=== PATIENT | male | born 1960 | race Caucasian/White ===

== ENCOUNTER 2021-07-20 08:37 | Emergency (ER) | payer OTHER, SELFPAY ==
[2021-07-20 08:38] VITALS: BP 153/101; PULSE 74; RESP 16; TEMP 36.5; O2SAT 95; BMI 26.8
--- NOTE | 2021-07-20 08:54 | RAD_ITS ---
STUDY: X-RAY CHEST REASON FOR EXAM: Male, 61 years old. Chest pain and hand numbness of the lip. TECHNIQUE: Single AP portable view of the chest. COMPARISON: None. FINDINGS: EKG electrodes are seen. There is hyperinflation of the lungs consistent with chronic obstructive lung disease (COPD). There is no demonstrated pleural abnormality. Normal size heart. Normal mediastinum and felicia. Normal visualized pulmonary arteries. Normal visualized aortic arch and descending thoracic aorta. There are diffuse degenerative changes of the visualized thoracic spine. Normal visualized ribs, clavicles, and shoulders. There is no demonstrated abnormality of the visualized soft tissue structures of the upper abdomen. RAD/Chest 1 View (Portable) IMPRESSION: Hyperinflation. The lungs are clear. Electronically Signed: Joe Bolivar MD at 9:49 EST , Service support ,
--- NOTE | 2021-07-20 08:54 | EKG12_ITS ---
Test Reason : CP Blood Pressure : / mmHG Vent. Rate : 066 BPM Atrial Rate : 066 BPM P-R Int : 164 ms QRS Dur : 078 ms QT Int : 396 ms P-R-T Axes : 014 014 039 degrees QTc Int : 415 ms Normal sinus rhythm Normal ECG No previous ECGs available Confirmed by GREER MCGOVERN, JESSICA ([id number]), editor at large ROSIE HEBERT ([id number]) on 07/25/2021 7:31:04 AM Referred By: ROYCE Confirmed By:JESSICA BUTTERFIELD MD
--- NOTE | 2021-07-20 08:55 | ED.VIS.CHEST ---
HPI History of Present Illness Chief Complaint: Chest Pain Informant: patient Onset/Context/Timing Onset: Today Activity at onset: sudden Timing: Continuous Quality: Positive for Pressure Location: Right Chest and Left Chest Current Severity: Mild Worsened By: Nothing Relieved By: Nothing Associated Symptoms: Positive for Cough; Negative for Nausea, Vomiting, Diaphoresis, Dyspnea, Fever, Lightheadedness, Acid Reflux and Palpitations Narrative Narrative: Patient presents with chest pain that began today. Patient states it began rather suddenly. Patient states he was walking while he was at work. Patient states that he felt a pressure in his chest. Patient states his lips also feel numb. Patient states he also was having some pain in his left arm. Patient states his pain is diffuse across his chest. Patient states nothing makes it better nothing makes it worse. Patient admits to recent cough but denies any shortness of breath or fevers. Patient denies any nausea or vomiting. Patient denies any lightheadedness or palpitations. [facility] Medical History Anxiety Tachycardia Home Medications NK 07/20/21 [History Last Taken Unknown] Allergy/AdvReac Type Severity Reaction Status Date / Time No Known Allergies Allergy Verified 07/20/21 08:42 Social History Smoking Status: Current every day smoker tobacco type: cigarettes ROS ROS ED Constitutional Constitutional ED: Denies chills or fever(s) Eyes Eyes: Denies blurry vision or change in vision ENT ENT ED: Reports sore throat; Denies rhinorrhea Cardiovascular Cardiovascular: Reports chest pain; Denies palpitations Respiratory/Chest Respiratory/Chest: Reports cough; Denies dyspnea Gastrointestinal Gastrointestinal: Reports nausea; Denies abdominal pain or vomiting Genitourinary Genitourinary ED: Denies dysuria or hematuria Musculoskeletal Musculoskeletal: Denies back pain or neck pain Integumentary Denies abscess or rash Neurologic Neurologic: Denies headache(s) or weakness Allergic/Immunologic Allergic/Immunologic ED: Denies mouth swelling or urticaria EXAM Physical Exam Const Vital Signs: 07/20/21 08:38 07/20/21 09:03 07/20/21 10:51 Temperature 97.7 F L Temperature Source Oral Pulse Rate 74 75 Respiratory Rate 16 20 H Respiratory Effort Normal Non-Labored Respiratory Pattern Normal Blood Pressure 153/101 H 136/95 H Blood Pressure Mean 118 108 Pulse Ox 95 100 Oxygen Delivery Method Room Air Room Air Room Air 07/20/21 11:12 07/20/21 12:37 Temperature Temperature Source Pulse Rate 63 97 Respiratory Rate 15 17 Respiratory Effort Respiratory Pattern Blood Pressure 163/106 H 143/93 H Blood Pressure Mean 125 109 Pulse Ox 97 96 Oxygen Delivery Method Room Air Room Air Positive well nourished and well developed General Appearance ED: well developed HEENT normocephalic and atraumatic Eyes PERRL and EOMs intact bilaterally Neck supple and no JVD Chest Wall palpation of chest normal Resp normal respiratory effort and clear to auscultation bilaterally Effort and Inspection: Negative for respiratory distress Cardio regular rate, regular rhythm and no murmurs GI normal to inspection, nondistended, normoactive bowel sounds, soft to palpation, non-tender and non-distended Extremity normal to inspection General Extremety ED: Negative for edema or tenderness General Extremity: Negative for edema Neuro oriented x3, CN's II-XII intact bilaterally and no sensory deficits noted Sensorium / Orientation: awake and alert Motor Exam: strength 5/5 throughout Psych mental status grossly normal Heart Score History: Slightly/Non-Suspicious ECG: Normal Age: >45 - <65 years Risk Factors: 1 or 2 Risk Factors Troponin: </= Normal Limit Score: 2 MDM MDM MDM Narrative Medical decision making narrative: Patient was given aspirin here. EKG was obtained. On my interpretation, it showed a normal sinus rhythm with a rate of 66. SD interval, QRS interval, and QTc intervals were all normal. [place] was normal. There are no acute ST or T wave changes. Portable 1 view chest x-ray was obtained. On my interpretation, lung mann are clear. There is normal cardiac silhouette. Bony thorax is normal. There is no acute process noted. Radiologist also interpreted the x-ray and agrees. CBC was within normal limits. D-dimer was normal. Basic metabolic profile was within normal limits. Initial high-sensitivity troponin was less than 3. 2-hour repeat high-sensitivity troponin was 3. Patient was advised of his findings. Patient has a HEART score of 2. Patient was advised that this is low risk for acute cardiac event. Patient was given referral for a primary care physician for follow-up care in 5 to 7 days. Patient understood and was agreeable with the plan. All questions were answered. Lab Data Attestation: I reviewed the patient's lab results. Labs: Laboratory Results - last 24 hr 07/20/21 07/20/21 07/20/21 08:41 08:41 08:41 WBC 4.0 L RBC 4.04 L Hgb 13.8 Hct 39.1 L MCV 96.8 H MCH 34.2 H MCHC 35.3 RDW Std Deviation 48.5 H RDW Coeff of Magdalena 13.5 Plt Count 258 MPV 9.7 Immature Gran % (Auto) 0.300 Neut % (Auto) 51.3 Lymph % (Auto) 38.2 [place] % (Auto) 8.4 Eos % (Auto) 1.3 Baso % (Auto) 0.5 Absolute Neuts (auto) 2.0 Absolute Lymphs (auto) 1.51 Nucleated RBC % 0 D-Dimer Quant (PE/DVT) 0.29 Sodium 141 Potassium 3.7 Chloride 109 H Carbon Dioxide 23.0 Anion Gap 9 BUN 9 Creatinine 1.09 Estim Creat Clear Calc 68.85 Est GFR (MDRD) Af Amer 88 Est GFR (MDRD) Non-Af 73 BUN/Creatinine Ratio 8.3 L Glucose 102 Calcium 9.0 Troponin I High Sens < 3 L 07/20/21 10:45 WBC RBC Hgb Hct MCV MCH MCHC RDW Std Deviation RDW Coeff of [place]dal[place] Plt Count MPV Immature Gran % (Auto) Neut % (Auto) Lymph % (Auto) [place] % (Auto) Eos % (Auto) Baso % (Auto) Absolute Neuts (auto) Absolute Lymphs (auto) Nucleated RBC % D-Dimer Quant (PE/DVT) Sodium Potassium Chloride Carbon Dioxide Anion Gap BUN Creatinine Estim Creat Clear Calc Est GFR (MDRD) Af Amer Est GFR (MDRD) Non-Af BUN/Creatinine Ratio Glucose Calcium Troponin I High Sens 3 Radiography Chest X-Ray - ED: 1 View, Read by ED Physician, Read by Radiologist and Normal Diagnostic Testing: Clinical Impression(s) from Imaging Studies Chest X-Ray 07/20/21 08:54 IMPRESSION: Hyperinflation. The lungs are clear. Electronically Signed: Joe Bolivar MD at 9:49 EST , Service support , EKG Initial EKG: Attestation: I personally reviewed and interpreted this EKG as follows: Interpretation: Sinus Rhythm (66) and No Acute Injury Pattern Prior EKG tracings: not available for review Discharge Plan Triage Chief Complaint: Chest Pain ED Provider: Sebastian Mcdonough Dx/Rx/DC Orders Clinical Impression: Chest pain Instructions: ED Chest Pain, Uncertain Cause Prescriptions: No Action NK RF: 0 Primary Care Provider: Care Physician,No Primary Referrals: Dalton Lau MD [STAFF PHYSICIAN] - 5-7 Days Care Physician,No Primary [Primary Care Provider] - Disposition Disposition: Home, Self Care
[2021-07-20] MEDS: Aspirin 81 MG TAB.CHEW 324 MG PO (09:00)
[2021-07-20 09:16] LABS: Absolute Lymphocyte Count 1.51 X10^3/uL (0.83-4.51); Basophil# 0.02 X10^3/uL; Basophil% 0.5 % (0-1); Eosinophil# 0.05 X10^3/uL; Eosinophils% 1.3 % (0-5); Hematocrit 39.1 % (40-54); Hemoglobin 13.8 g/dL (13.0-16.5); Lymphocyte # 1.51 X10^3/ul (0.83-4.51); Lymphocyte % 38.2 % (19-41); Mean Corp Hgb Conc 35.3 g/dL (32-36); Mean Corpuscular Hgb 34.2 pg (27.0-32.0); Mean Corpuscular Volume 96.8 fL (80-94); Mean Platelet Vol. 9.7 fl (6.2-12.0); Monocyte# 0.33 X10^3/uL; Monocyte% 8.4 % (0-10); NRBC Flagged by Analyzer 0 % (0-5); Neutrophil # 2.03 X10^3/uL (2.7-7.7); Neutrophil % 51.3 % (47-70); Platelet Count 258 K/mm3 (150-450); RBC Distribution Width CV 13.5 % (11.6-14.6); RBC Distribution Width SD 48.5 fl (35.1-43.9); Red Blood Count 4.04 M/mm3 (4.6-6.2)
[2021-07-20 09:18] LABS: D-Dimer Quantitative (DVT/PE) 0.29 FEU/ug/m (0.27-0.49)
[2021-07-20 09:25] LABS: Anion Gap 9 (5-15); BUN 9 mg/dL (7-18); BUN/Creat Ratio 8.3 RATIO (10-20); Chloride 109 mmol/L (98-107); Creatinine, Serum 1.09 mg/dL (0.70-1.30); EST Glomerular Filtration Rate 73 mL/min (>60); Est Glom Filt Rate - Afr Amer 88 mL/min (>60); Estimated Creatinine Clearance 68.85 ml/min; Glucose 102 mg/dL (74-106); Potassium 3.7 mmol/L (3.5-5.1); Sodium Level 141 mmol/L (136-145); Troponin-I HS < 3 pg/mL (3.0-78.0)
[2021-07-20 10:51] VITALS: BP 136/95; PULSE 75; RESP 20; O2SAT 100
[2021-07-20 11:12] VITALS: BP 163/106; PULSE 63; RESP 15; O2SAT 97
[2021-07-20 11:12] LABS: Troponin-I HS 3 pg/mL (3.0-78.0)
[2021-07-20 12:37] VITALS: BP 143/93; PULSE 97; RESP 17; O2SAT 96
[2021-07-20 13:04] VITALS: PULSE 74; RESP 16; O2SAT 98
== END 2021-07-20 13:05 | disposition home or self-care (01) ==
PROVIDERS: Emergency Provider Emergency Medicine
DX: R07.9 Chest pain, unspecified (principal); F17.210 Nicotine dependence, cigarettes, uncomplicated
CPT/HCPCS: 71045; 80048; 84484; 85025; 85379; 87426; 93005; 99285; A4216

== ENCOUNTER 2022-06-07 12:05 | Emergency (ER) | payer OTHER, SELFPAY ==
[2022-06-07 12:05] VITALS: BP 177/69; PULSE 62; RESP 16; TEMP 36.2; O2SAT 100; BMI 27.3
--- NOTE | 2022-06-07 12:27 | ED.RN ---
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
--- NOTE | 2022-06-07 12:58 | CT_ITS ---
STUDY: CT BRAIN WITHOUT CONTRAST REASON FOR EXAM: Male, 62 years old. headache FALL AT WORK X1 DAY AGO--HIT RIGHT SIDE OF HEAD HEAD T NECK PAIN RADIATION DOSAGE (If Supplied By Facility): CTDIvol = ( 47.06 ) mGy, DLP = ( 855.03 ) mGycm TECHNIQUE: Transaxial CT imaging of the brain was performed without administration of intravenous contrast material. Individualized dose optimization techniques were used for this CT. COMPARISON: No relevant priors. FINDINGS: Normal soft tissue structures. Normal calvarium. No visualized skull fracture or hemorrhagic contusions of the brain parenchyma or subdural hematoma. Normal size ventricles and extra-axial spaces for the patient''s age. Normal white matter tracts of the cerebral hemispheres. Normal basal ganglia and thalami. Normal brainstem. Normal cerebellum. There is no intracranial hemorrhage. There are no findings of an acute ischemic infarction. Normal visualized paranasal sinuses. CT/Brain/Head without Contrast IMPRESSION: Normal unenhanced CT scan of the brain. Electronically Signed: Benjamin Rankin MD at 13:28 EDT ,
--- NOTE | 2022-06-07 12:58 | CT_ITS ---
STUDY: CT CERVICAL SPINE WITHOUT CONTRAST REASON FOR EXAM: Male, 62 years old. FALL AT WORK X1 DAY AGO--HIT RIGHT SIDE OF HEAD HEAD T NECK PAIN RADIATION DOSAGE (If Supplied By Facility): CTDIvol = ( 18.89 ) mGy, DLP = ( 347.47 ) mGycm TECHNIQUE: High resolution transaxial imaging was performed without contrast material. Sagittal and coronal images were reconstructed. Individualized dose optimization techniques were used for this CT. COMPARISON: None FINDINGS: Normal craniovertebral junction. Normal anterior atlantoaxial articulation. Normal odontoid process. There is reversal of the normal cervical lordosis. No visualized acute fracture or compression deformity. Moderate to severe disc space narrowing with a diffuse disc osteophyte complex at C4-C5, C5-C6, C6-C7 resulting in mild to moderate central canal stenosis and compression anterior aspect of the cord. Moderate to severe bilateral foraminal stenosis at C4-C5, C5-C6, C6-C7 with nerve root compression. Multilevel uncovertebral and facet degenerative changes at all visualized levels. Moderate disc space narrowing at C7-T1. Mild central canal stenosis at C7-T1. Normal visualized soft tissue structures. CT/Spine Cervical without Contras IMPRESSION: Multilevel degenerative changes, as described above. Electronically Signed: Benjamin Rankin MD at 13:31 EDT ,
--- NOTE | 2022-06-07 12:58 | EX.ED.GENINJ ---
HPI History of Present Illness Chief Complaint: Head Injury Narrative Narrative: 62-year-old male presenting with headache. He states he was at work yesterday and walking along a railing and lost his footing under the rail and fell hitting his head head and specifically his right cheek on the concrete. Denies LOC. He states he was able to finish his shift up until 6:30 PM. He does not have lightheadedness, dizziness, nausea, vomiting, light or sound sensitivity. He does admit to a little bit of neck pain and he had a small bruise to the right side of his chest which he states does not hurt very bad. He does not have any shortness of breath. He is not anticoagulated on any blood thinners. He states he woke up this morning and shook his head and started to have a very severe headache. He took ibuprofen and is now down to a 6 or 7. He went to work today and was referred to be evaluated as Worker's Comp. Patient states he has no significant medical history. [facility] Medical History Anxiety Tachycardia Home Medications naproxen 500 mg tablet (Naprosyn) 500 mg PO BID PRN pain #20 tabs 06/07/22 [Rx Last Taken Unknown] Allergy/AdvReac Type Severity Reaction Status Date / Time No Known Allergies Allergy Verified 06/07/22 12:14 Social History Smoking Status: Former smoker ROS [facility] ED Constitutional Constitutional ED: Denies chills or fever(s) Eyes Eyes: Denies blurry vision or change in vision ENT ENT ED: Denies rhinorrhea or sore throat Cardiovascular Cardiovascular: Denies chest pain or palpitations Respiratory/Chest Respiratory/Chest: Denies cough or dyspnea Gastrointestinal Gastrointestinal: Denies abdominal pain, nausea or vomiting Genitourinary Genitourinary ED: Denies dysuria or hematuria Musculoskeletal Musculoskeletal: Reports neck pain; Denies arthralgias Integumentary Denies abscess or Abrasions Neurologic Neurologic: Reports headache(s); Denies paresthesias or weakness Psychiatric Psychiatric: Denies anxiety or depression EXAM Physical Exam Const Vital Signs: 06/07/22 12:05 06/07/22 12:47 Temperature 97.1 F L Temperature Source Temporal Pulse Rate 62 Respiratory Rate 16 Respiratory Effort Normal Respiratory Depth Normal Respiratory Pattern Normal Blood Pressure 177/69 H Blood Pressure Mean 105 Pulse Ox 100 Oxygen Delivery Method Room Air Room Air Positive well nourished General Appearance ED: REGIS WALTERS Narrative: Patient symmetric. No bruising on the face. No extraocular muscle entrapment. TMs normal. atraumatic Eyes PERRL and EOMs intact bilaterally Chest Wall Chest Narrative: Small area of ecchymosis over the upper part of the right pectoralis. No crepitance or deformity. Equal symmetric breath sounds and chest wall rise. Resp normal respiratory effort and clear to auscultation bilaterally Auscultation: Negative for rales, rhonchi or wheezes Cardio Negative for regular rhythm GI normal to inspection, nondistended, normoactive bowel sounds Back/Spine Lumbar Spine / Lower Back: straight leg raise negative bilaterally Extremity normal to inspection Neuro oriented x3 and CN's II-XII intact bilaterally Sensorium / Orientation: alert Motor Exam: strength 5/5 throughout Psych Mood & Affect: Negative for depressed or anxious Skin no rashes or lesions noted, no wounds and No no jaundice MDM MDM MDM Narrative Medical decision making narrative: 62-year-old male presenting with headache after a fall yesterday. He is concerned for concussion but does not have any red flag signs or symptoms of concussion. Not dizzy, lightheaded, nauseous, no light or sound sensitivity. He states his headache is a 6 after taking ibuprofen. No focal neurologic deficits or lateralizing signs or symptoms. [facility] and had Worker's Comp. paperwork filled out there. CT of the brain and cervical spine are both negative for acute findings. Patient counseled he probably has a mild concussion based on his symptoms and headache. He is given concussion precautions and follow-up with the [facility]. Return precautions for here were given. Impression: 1. Mechanical fall 2. Closed head injury 3. Concussion?mild Lab Data Attestation: I reviewed the patient's lab results. Radiography Diagnostic Testing: Clinical Impression(s) from Imaging Studies Brain CT 06/07/22 12:58 IMPRESSION: Normal unenhanced CT scan of the brain. Electronically Signed: Benjamin Rankin MD at 13:28 EDT , Cervical Spine CT 06/07/22 12:58 IMPRESSION: Multilevel degenerative changes, as described above. Electronically Signed: Benjamin Rankin MD at 13:31 EDT Reading Location ID and State: [facility] / [place] , Service support , Discharge Plan Triage Chief Complaint: Head Injury ED Provider: Delgado Ring Dx/Rx/DC Orders Instructions: ED Concussion Prescriptions: New naproxen [Naprosyn] 500 mg tablet 500 mg PO BID PRN (Reason: pain) Qty: 20 0RF Primary Care Provider: Care Physician,No Primary Referrals: Care Physician,No Primary [Primary Care Provider] - Disposition Disposition: Home, Self Care
== END 2022-06-07 13:43 | disposition home or self-care (01) ==
PROVIDERS: Emergency Provider Student in an Organized Health Care Education/Training Program; Visit Provider Student in an Organized Health Care Education/Training Program
DX: S06.0X0A Concussion without loss of consciousness, initial encounter (principal); Y93.89 Activity, other specified; Y99.0 Civilian activity done for income or pay; W01.198A Fall on same level from slipping, tripping and stumbling with subsequent striking against other object, initial encounter; Y92.89 Other specified places as the place of occurrence of the external cause; Z87.891 Personal history of nicotine dependence
CPT/HCPCS: 70450; 72125; 99282

== ENCOUNTER 2022-08-26 04:48 | Emergency (ER) | payer OTHER, SELFPAY ==
[2022-08-26 04:49] VITALS: BP 183/103; PULSE 70; RESP 18; TEMP 35.8; O2SAT 100; BMI 28.5
[2022-08-26] MEDS: Penicillin Vk 250 MG Tablet 500 MG PO (05:28)
--- NOTE | 2022-08-26 05:44 | EX.ED.DYSGE1 ---
HPI History of Present Illness Chief Complaint: Dental Narrative Narrative: Patient is a 62-year-old male who reports a past medical history of anxiety. He states that around [place] time he was visiting his family in [place] when he bit down while eating and cracked a tooth. He states since that time he has been having increased pain to the right lower tooth and the last 2 to 3 days has had facial swelling and has concern for infection and secondary to this he comes in for evaluation [facility] Medical History Anxiety Tachycardia Home Medications oxycodone-acetaminophen 5 mg-325 mg tablet (Percocet) 1 tab PO Q6H PRN pain 3 days #12 tabs 08/26/22 [Rx Last Taken Unknown] penicillin V potassium 500 mg tablet 500 mg PO 4X/DAY #40 tabs 08/26/22 [Rx Last Taken Unknown] Allergy/AdvReac Type Severity Reaction Status Date / Time No Known Allergies Allergy Verified 08/26/22 04:52 Social History Smoking Status: Former smoker ROS ROS ED Constitutional Constitutional ED: Denies chills or fever(s) ENT ENT ED: Reports other Details: Positive dental pain and facial swelling ; Denies sore throat Cardiovascular Cardiovascular: Denies chest pain Respiratory/Chest Respiratory/Chest: Denies cough or dyspnea Gastrointestinal Gastrointestinal: Denies abdominal pain, diarrhea, nausea or vomiting Genitourinary Genitourinary ED: Denies dysuria Musculoskeletal Musculoskeletal: Denies myalgias or neck pain Integumentary Denies rash Neurologic Neurologic: Denies headache(s) Hematologic/Lymphatic Hematologic/Lymphatic: Denies easy bleeding or easy bruising EXAM Physical Exam Const Vital Signs: 08/26/22 04:49 Temperature 96.5 F L Temperature Source Temporal Pulse Rate 70 Respiratory Rate 18 Blood Pressure 183/103 H Blood Pressure Mean 129 Pulse Ox 100 Oxygen Delivery Method Room Air Positive well nourished and well developed General Appearance ED: well developed HEENT Reports moist mucous membranes HEENT Narrative: No tongue or lip swelling no oral lesions no airway edema or compromise. Patient does have dental caries present with a cracked filling in the right lower jaw. There is no obvious drainable fluid collection to suggest abscess. Patient does have external right cheek facial swelling but no overlying erythema or warmth. Eyes PERRL and EOMs intact bilaterally Neck supple Neck Narrative: Positive anterior cervical lymphadenopathy No brawny edema in the submental space to suggest Nakul's angina Resp normal respiratory effort and clear to auscultation bilaterally Cardio regular rate and regular rhythm Extremity normal to inspection Neuro oriented x3 and CN's II-XII intact bilaterally Sensorium / Orientation: alert Psych mental status grossly normal Skin no rashes or lesions noted MDM MDM MDM Narrative Medical decision making narrative: Patient presented to the ER hypertensive but otherwise with stable vitals. His history and exam is consistent with fracture of the dental filling which is now led to secondary infection. As there is no obvious drainable fluid collection there is no need for incision and drainage and as he does not have signs to suggest Nakul's angina or systemic infection he does not need blood work or imaging studies. Patient was given a dental block as document below for pain control and started on antibiotics with history and exam concerning for developing dental infection. However as this is not systemic as documented above and is not causing respiratory distress he is otherwise safe for discharge Patient was given a right inferior alveolar dental block using 1.5 mL of 0.5% Marcaine and 1.5 mL of 2% lidocaine with epinephrine. Patient achieved good anesthesia with the injection and tolerated the procedure well without complication. Discharge Plan Triage Chief Complaint: Dental ED Provider: Louis Serrano Dx/Rx/DC Orders Clinical Impression: Pain, dental, Dental infection Instructions: Dental Abscess, ED Dental Pain Prescriptions: New penicillin V potassium 500 mg tablet 500 mg PO 4X/DAY Qty: 40 0RF oxycodone-acetaminophen [Percocet] 5-325 mg tablet 1 tab PO Q6H PRN (Reason: pain) 3 Days Qty: 12 0RF Primary Care Provider: Care Physician,No Primary Referrals: Care Physician,No Primary [Primary Care Provider] - Activity Restrictions/Additional Instructions: Follow-up with your dentist for further evaluation but take the antibiotic as directed as your history and exam indicate you have a developing dental infection. Please return to the ER should you have any further concerns or worsening of symptoms Disposition Disposition: Home, Self Care Discharge Date/Time: 08/26/22 06:14
[2022-08-26] MEDS: Lidocaine 2% /Epi 1:100 (20ml) 20 ML VIAL INFILT (06:08)
[2022-08-26] MEDS: Bupivacaine Mpf 0.5% 30 ML VIAL INFILT (06:08)
== END 2022-08-26 06:14 | disposition home or self-care (01) ==
PROVIDERS: Emergency Provider Emergency Medicine; Visit Provider Emergency Medicine
DX: K04.7 Periapical abscess without sinus (principal); Z87.891 Personal history of nicotine dependence
CPT/HCPCS: 64999; 99283

== ENCOUNTER 2023-02-19 19:13 | Emergency (ER) | payer OTHER, SELFPAY ==
[2023-02-19 19:15] VITALS: BP 161/103; PULSE 84; RESP 16; TEMP 36.2; O2SAT 97; BMI 27.3
--- NOTE | 2023-02-19 23:13 | EX.ED.DYSGE1 ---
HPI History of Present Illness Chief Complaint: Occup Expose Informant: patient Narrative Narrative: Patient is a 62-year-old male with past medical history of anxiety. He states that he was at work today roughly 6 hours ago when he was exposed to a low concentration hydrofluoric acid solution. He states he was able to wash his hands and he has been applying calcium gluconate topical cream/gel but roughly 1 to 2 hours ago he noticed a small area of redness and blistering along his right middle finger. Secondary to his he presents for evaluation. [facility] Medical History Anxiety Tachycardia Home Medications oxycodone-acetaminophen 5 mg-325 mg tablet (Percocet) 1 tab PO Q6H PRN pain 3 days #12 tabs 08/26/22 [Rx Last Taken Unknown] penicillin V potassium 500 mg tablet 500 mg PO 4X/DAY #40 tabs 08/26/22 [Rx Last Taken Unknown] Allergy/AdvReac Type Severity Reaction Status Date / Time No Known Allergies Allergy Verified 02/19/23 22:54 Social History Smoking Status: Former smoker ROS ROS ED Constitutional Constitutional ED: Denies chills or fever(s) ENT ENT ED: Denies sore throat Cardiovascular Cardiovascular: Denies chest pain Respiratory/Chest Respiratory/Chest: Denies cough or dyspnea Gastrointestinal Gastrointestinal: Denies abdominal pain, diarrhea, nausea or vomiting Genitourinary Genitourinary ED: Denies dysuria Musculoskeletal Musculoskeletal: Reports other Details: Positive right hand/finger pain Integumentary Reports other Details: Positive burn right hand Neurologic Neurologic: Denies headache(s) or paresthesias Hematologic/Lymphatic Hematologic/Lymphatic: Denies easy bleeding or easy bruising EXAM Physical Exam Const Vital Signs: 02/19/23 19:15 02/19/23 23:21 02/19/23 23:23 Temperature 97.2 F L Temperature Source Temporal Pulse Rate 84 65 Respiratory Rate 16 16 17 Blood Pressure 161/103 H 164/98 H Blood Pressure Mean 122 120 Pulse Ox 97 99 Oxygen Delivery Method Room Air Room Air Positive well nourished and well developed General Appearance ED: well developed HEENT HEENT Narrative: Normocephalic atraumatic Eyes PERRL and EOMs intact bilaterally Neck supple Resp normal respiratory effort and clear to auscultation bilaterally Cardio regular rate and regular rhythm Extremity Extremity Narrative: Right upper extremity is neurovascularly intact; AIN/PIN are intact and normal. Patient has a small roughly 1.5 cm in size combination of first and second-degree burn to the radial distal aspect of the right third digit. There is no necrosis present. No circumferential burn. No signs of compartment syndrome. Capillary refill is less than 3 seconds. Neuro oriented x3 and CN's II-XII intact bilaterally Sensorium / Orientation: alert Psych mental status grossly normal Skin Skin Narrative: Soft tissue changes to the distal aspect of the right third finger as documented above MDM MDM MDM Narrative Medical decision making narrative: Patient presented to the ER hypertensive otherwise with stable vital. He been exposed to low concentration of acid multiple hours ago and has been treating it appropriately with removal of the substance as well as calcium gluconate. At this time there is a combination of stage I and stage II burn but encompasses only small amount of less than 1% total body surface area. He does not have signs of secondary infection such as cellulitis and it is not a circumferential burn going against entrapment/contracture or compartment syndrome. Therefore at this time I do not feel there is need for any further work-up and patient can continue to care for the area as he has been and is otherwise safe for discharge History & Record Review Discussion w/independent historian: Patient Discharge Plan Triage Chief Complaint: Occup Expose ED Provider: Louis Serrano Dx/Rx/DC Orders Clinical Impression: Accidental exposure to hydrofluoric acid Instructions: ED Chemical Burn, Skin Prescriptions: No Action penicillin V potassium 500 mg tablet 500 mg PO 4X/DAY Qty: 40 0RF Hold Instructions: Pt has been DC'd oxycodone-acetaminophen [Percocet] 5-325 mg tablet 1 tab PO Q6H PRN (Reason: pain) 3 Days Qty: 12 0RF Hold Instructions: Pt has been DC'd Primary Care Provider: Care Physician,No Primary Referrals: Care Physician,No Primary [Primary Care Provider] - Activity Restrictions/Additional Instructions: Your physical exam shows you have a grade 1 and 2 burn along that right third finger. Continue to wash with soap and water and apply topical calcium gluconate as there is no signs of necrosis. The skin should slough off and heal over the next 5 to 7 days and return to the ER should you have any further concerns Disposition Disposition: Home, Self Care Discharge Date/Time: 02/19/23 23:21
[2023-02-19 23:21] VITALS: RESP 16
[2023-02-19 23:23] VITALS: BP 164/98; PULSE 65; RESP 17; O2SAT 99
== END 2023-02-19 23:21 | disposition home or self-care (01) ==
PROVIDERS: Emergency Provider Emergency Medicine; Visit Provider Emergency Medicine
DX: T23.221A Burn of second degree of single right finger (nail) except thumb, initial encounter (principal); T31.0 Burns involving less than 10% of body surface; Y99.0 Civilian activity done for income or pay; Z87.891 Personal history of nicotine dependence
CPT/HCPCS: 99282